=== PATIENT | male | born 1960 ===

== ENCOUNTER 2019-03-04 17:39 | Emergency (ER) | payer OTHER ==
[~2019-03-04] VITALS: Ht 154.9 cm; Wt 71.8 kg
[2019-03-04 18:31] VITALS: BP 125/84
== END 2019-03-04 19:59 | disposition home or self-care (01) ==
LOC: ER 17:40
DX: L02.413 Cutaneous abscess of right upper limb (principal); M79.621 Pain in right upper arm; F11.20 Opioid dependence, uncomplicated
CPT/HCPCS: 10060; 99283